=== PATIENT | female | born 1980 | race Two or more races ===

== ENCOUNTER 2019-05-19 12:09 | Emergency (ER) | payer SELFPAY ==
[~2019-05-19] VITALS: Ht 157.5 cm; Wt 86.0 kg
--- NOTE | 2019-05-19 12:26 | PHYS DOC ---
Adult General Chief Complaint Chief Complaint: Palpitations HPI HPI Patient is a 39 year old female with history of SVT and hypertension who presents via EMS with complaining of SVT. Patient complaining of non-exertional sudden onset of palpitation associated with mild dizziness without chest pain or shortness of breath or nausea vomiting that started at 1030 and patient with several migraine without improvement of the condition. EMS reported that patient had SVT with heart rate of 200 and treated with 6 and 12 and 12 mg of adenosine and finally heart rate dropped to 120s. Patient had elevation of blood pressure at 170s during treatment and episode of SVT. Patient stated last episode of SVT was 1 year ago and denies recent dehydration or missing her medication. Review of Systems Review of Systems Constitutional: Denies fever or chills [] Eyes: Denies change in visual acuity, redness, or eye pain [] HENT: Denies nasal congestion or sore throat [] Respiratory: Denies cough or shortness of breath [] Cardiovascular: No additional information not addressed in HPI [] GI: Denies abdominal pain, nausea, vomiting, bloody stools or diarrhea [] : Denies dysuria or hematuria [] Musculoskeletal: Denies back pain or joint pain [] Integument: Denies rash or skin lesions [] Neurologic: Denies headache, focal weakness or sensory changes [] Endocrine: Denies polyuria or polydipsia [] All other systems were reviewed and found to be within normal limits, except as documented in this note. Current Medications Current Medications Current Medications Medications (Trade) Dose Ordered Sig/Lilliana Start Time Stop Time Status Last Admin Dose Admin Metoprolol Tartrate (Lopressor) 25 mg 1X ONCE 05/19/19 14:30 05/19/19 14:31 DC 05/19/19 14:43 25 MG Sodium Chloride 1,000 ml @ 1,000 mls/hr 1X ONCE 05/19/19 14:30 05/19/19 15:29 05/19/19 14:44 1,000 MLS/HR Allergies Allergies Allergies Coded Allergies Type Severity Reaction Last Updated Verified No Known Drug Allergies 05/19/19 No Physical Exam Physical Exam Constitutional: Well developed, well nourished, mild distress, non-toxic appearance. [] HENT: Normocephalic, atraumatic. Eyes: PERRLA, EOMI, conjunctiva normal, no discharge. [] Neck: Normal range of motion, no tenderness, supple, no stridor. [] Cardiovascular: Tachycardia, no murmur [] Lungs & Thorax: Bilateral breath sounds clear to auscultation [] Abdomen: Bowel sounds normal, soft, no tenderness, no masses, no pulsatile masses. [] Skin: Warm, dry, no erythema, no rash. [] Back: No tenderness, no CVA tenderness. [] Extremities: No tenderness, no cyanosis, no clubbing, ROM intact, no edema. [] Neurologic: Alert and oriented X 3, no focal deficits noted. [] Psychologic: Affect normal, judgement normal, mood normal. [] Current Patient Data Vital Signs Vital Signs Date Time Temp Pulse Resp B/P (MAP) Pulse Ox O2 Delivery O2 Flow Rate FiO2 05/19/19 14:43 96 180/90 05/19/19 13:10 18 93 Room Air 05/19/19 12:18 99.0 99.0 Lab Values Laboratory Tests Test 05/19/19 12:28 Sodium Level 142 mmol/L (136-145) Potassium Level 3.7 mmol/L (3.5-5.1) Chloride Level 105 mmol/L (98-107) Carbon Dioxide Level 25 mmol/L (21-32) Anion Gap 12 (6-14) Blood Urea Nitrogen 10 mg/dL (7-20) Creatinine 0.8 mg/dL (0.6-1.0) Estimated GFR (Cockcroft-Gault) 80.3 BUN/Creatinine Ratio 13 (6-20) Glucose Level 104 mg/dL (70-99) H Calcium Level 9.2 mg/dL (8.5-10.1) Magnesium Level 2.1 mg/dL (1.8-2.4) Total Bilirubin 0.3 mg/dL (0.2-1.0) Aspartate Amino Transferase (AST) 23 U/L (15-37) Alanine Aminotransferase (ALT) 33 U/L (14-59) Alkaline Phosphatase 66 U/L (46-116) Creatine Kinase 104 U/L (26-192) Troponin I Quantitative < 0.017 ng/mL (0.000-0.055) CO-Vhc-K-Type Natriuretic Peptide 78 pg/mL (0-124) Total Protein 9.1 g/dL (6.4-8.2) H Albumin 4.3 g/dL (3.4-5.0) Albumin/Globulin Ratio 0.9 (1.0-1.7) L Thyroid Stimulating Hormone (TSH) 0.922 uIU/mL (0.358-3.74) Laboratory Tests 05/19/19 12:28 EKG EKG EKG interpreted by me. EKG at 1217 showed sinus tachycardia at rate of 124, left ventricular strain, poor R wave progression anteroseptal leads, no acute ST and T wave elevation. Radiology/Procedures Radiology/Procedures [facility] [address] [place] [address] IMAGING REPORT Signed PATIENT: BELINDA CLAUDIO ACCOUNT: [id number] : 1980 LOCATION: ER AGE: 39 SEX: F EXAM STATUS: REG ER ORD. PHYSICIAN: JONO BRIGGS MD REASON: SVT PROCEDURE: PORTABLE CHEST 1V PORTABLE CHEST 1V History: SVT. Comparison: None FINDINGS: No evidence of consolidating infiltrate. No pleural effusion or pneumothorax. Cardiomediastinal silhouette appears within normal limits. Bones appear intact. IMPRESSION: No evidence of consolidating infiltrate. Electronically signed by: Dallas Petersen MD (05/19/2019 2:39 PM) [id number] DICTATED and SIGNED BY: DALLAS PETERSEN MD DATE: 05/19/19 1439 Course & Med Decision Making Course & Med Decision Making Pertinent Labs and Imaging studies reviewed. (See chart for details) Evaluation of patient ER showed 39-year-old female patient brought in by EMS because of SVT that resolved by EMS with 6 and 12 and 12 mg of adenosine. Patient has sinus tachycardia at arrival to ER without hypotension or any other symptoms. Labs was unremarkable. Patient became tachycardic with sitting up and treated with 1 dose of metoprolol and IV fluids with improvement of her condition. Cardiology team was consulted at 1329 and suggested to increase metoprolol from 25 to 50 mg and follow-up as outpatient with manager photography. I've spoken with the patient and/or caregivers. I've explained the patient's condition, diagnosis and treatment plan based on information available to me at this time. I've answered the patient's and/or caregivers questions and addressed any concerns. The patient and/or caregivers have a good understanding the patient's diagnosis, condition and treatment plan as can be expected at this point. Vital signs have been stabilized. The patient's condition is stable for discharge from the emergency department. The patient will pursue further outpatient evaluation with her primary care provider or other designated consulting physician as outlined in the discharge instructions. Patient and/or caregivers are agreeable to this plan of care and follow-up instructions have been explained in detail. The patient and/or caregivers have received these instructions in written format and expressed und erstanding of these discharge instructions. The patient and her caregivers are aware that if any significant change in condition or worsening of symptoms should prompt him to immediately return to this of the closest emergency department. If an emergent department is not readily available I would e ncourage him to call 911. Dragon Disclaimer Dragon Disclaimer This electronic medical record was generated, in whole or in part, using a voice recognition dictation system. Departure Departure Impression: Primary Impression: SVT (supraventricular tachycardia) Additional Impression: Sinus tachycardia Disposition: 01 HOME, SELF-CARE Condition: IMPROVED Referrals: MEAGAN BARRAGAN MD Patient Instructions: Supraventricular Tachycardia, [id number] Additional Instructions: Take metoprolol 2 pills in the morning or take the prescribed medication once a day Follow-up with your primary care physician in 3-5 days Return to ER if not getting better Follow-up with your doctor in 2-3 days Scripts Metoprolol Succinate (Toprol XL) 50 Mg Tab.er.24h 50 MG PO DAILY for FOR HYPERTENSION, #30 TAB.SR Prov: JONO BRIGGS MD 05/19/19 Problem Qualifiers JONO BRIGGS MD May 19, 2019 12:26
[2019-05-19] MEDS ORDERED: METO-239 PO (12:39)
--- NOTE | 2019-05-19 12:40 | EKG ---
[facility] [address] [place] [address] Test Date: 2019-05-19 Test Time: 12:17:12 Pat Name: BELINDA POLK Department: Room: Gender: F [employer]er: : 1980 Requested By: JONO BRIGGS Order Number: [id number] Reading MD: Constantin Ching MD Measurements Intervals [place] Rate: 123 P: 31 IA: 120 QRS: 4 QRSD: 80 T: -6 QT: 354 QTc: 513 Interpretive Statements SINUS TACHYCARDIA NON-SPECIFIC ST/T CHANGES Electronically Signed On 05-19-2019 15:34:30 COMPUTER VIDEO GAME DESIGNER by Constantin Ching MD
[2019-05-19 12:58] LABS: CALCIUM 9.2 mg/dL (8.5-10.1); CREATININE 0.8 mg/dL (0.6-1.0); GFR 80.3; POTASSIUM 3.7 mmol/L (3.5-5.1)
[2019-05-19 13:03] LABS: ALBUMIN 4.3 g/dL (3.4-5.0); ALBUMIN/GLOBULIN RATIO 0.9 (1.0-1.7); MAGNESIUM 2.1 mg/dL (1.8-2.4); TOTAL BILIRUBIN 0.3 mg/dL (0.2-1.0); TOTAL PROTEIN 9.1 g/dL (6.4-8.2)
--- NOTE | 2019-05-19 13:58 | PDOC2 ---
HECTOR ROSADO ACID PUMPER 05/19/19 1358: CARDIAC CONSULT DATE OF CONSULT Date of Consult DATE: 05/19/19 TIME: 13:56 REASON FOR CONSULT Reason for Consult: Palpitations REFERRING PHYSICIAN Referring Physician: Vandana SOURCE Source: Chart review, Patient HISTORY OF PRESENT ILLNESS HISTORY OF PRESENT ILLNESS This is a pleasant 39 yo female admitted for complains of palpitations. Reports that she was sitting when she started feeling that her heart was racing. No SOA, chest pain or dizziness. She has a device that she uses for her HR and noted her HR in the 200s. She tried to bear down and actually dip her face in cold water but her rate did not slow down. EMS was finally called in and multiple adenosine were given. She finally converted to sinus tach. She does take torpol 25 once a day which she took this AM. Denies any tobacco use or excessive caffeine use. No recreational drugs. No recent falls or injury. Denies any decongestant use. She has hx of SVT with las episode about a yr ago. She [facility] [place] and [place]. No recent respiratory infection. She did drank about 5 bottles of beers last night to celebrate her birthday. No recent long distance travel. No hx of VTE. No exertional CP nor [place]. No n/v/d. PAST MEDICAL HISTORY Cardiovascular: Other (SVT; preeclampsia) Pulmonary: Asthma CENTRAL NERVOUS SYSTEM: Other (No pertinent history) GI: No pertinent hx Heme/Onc: No pertinent hx Hepatobiliary: No pertinent hx Psych: No pertinent hx Musculoskeletal: Other (None) Rheumatologic: No pertinent hx Infectious disease: No pertinent hx ENT: No pertinent hx Renal/: No pertinent hx Endocrine: No pertinent hx Dermatology: No pertinent hx PAST SURGICAL HISTORY Past Surgical History: No pertinent history FAMILY HISTORY Family History: Other (SVT sister also has it) SOCIAL HISTORY Smoke: No ALCOHOL: none Drugs: None Lives: with Family ALLERGIES ALLERGIES: Coded Allergies: No Known Drug Allergies (Unverified , 05/19/19) ROS Review of System 14 point ROS evaluated with pertinent positives noted per HPI PHYSICAL EXAM General: Alert, Oriented X3, Cooperative, No acute distress HEENT: Atraumatic, Mucous membr. moist/pink Lungs: Clear to auscultation, Normal air movement Heart: Regular rate (sinus tachycardia) Abdomen: Soft, No tenderness Extremities: No cyanosis, No edema Skin: No breakdown, No significant lesion Neuro: Normal speech, Sensation intact Psych/Mental Status: Mental status NL, Mood NL MUSCULOSKELETAL: Full range of motion without pain VITALS/I&O VITALS/I&O: Vital Signs Date Time Temp Pulse Resp B/P (MAP) Pulse Ox O2 Delivery O2 Flow Rate FiO2 05/19/19 13:10 105 18 174/94 (120) 93 Room Air 05/19/19 12:18 99.0 99.0 LABS Lab: Laboratory Tests Test 05/19/19 12:28 Sodium Level 142 mmol/L (136-145) Potassium Level 3.7 mmol/L (3.5-5.1) Chloride Level 105 mmol/L (98-107) Carbon Dioxide Level 25 mmol/L (21-32) Anion Gap 12 (6-14) Blood Urea Nitrogen 10 mg/dL (7-20) Creatinine 0.8 mg/dL (0.6-1.0) Estimated GFR (Cockcroft-Gault) 80.3 BUN/Creatinine Ratio 13 (6-20) Glucose Level 104 mg/dL (70-99) H Calcium Level 9.2 mg/dL (8.5-10.1) Magnesium Level 2.1 mg/dL (1.8-2.4) Total Bilirubin 0.3 mg/dL (0.2-1.0) Aspartate Amino Transferase (AST) 23 U/L (15-37) Alanine Aminotransferase (ALT) 33 U/L (14-59) Alkaline Phosphatase 66 U/L (46-116) Creatine Kinase 104 U/L (26-192) Troponin I Quantitative < 0.017 ng/mL (0.000-0.055) JJ-Clq-R-Type Natriuretic Peptide 78 pg/mL (0-124) Total Protein 9.1 g/dL (6.4-8.2) H Albumin 4.3 g/dL (3.4-5.0) Albumin/Globulin Ratio 0.9 (1.0-1.7) L Thyroid Stimulating Hormone (TSH) 0.922 uIU/mL (0.358-3.74) Laboratory Tests 05/19/19 12:28 ASSESSMENT/PLAN ASSESSMENT/PLAN 1. 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 presently sinus tach 2. HTN urgency 3. Obesity 4. Family hx of SVT. sister also has it 5. Prolonged QTc: 513 Recommendations 1. Increase toprol dose to 50 mg daily. Continue home lisinopril. Encouraged vagal maneuvers. 2. Follow up with her [place] cardioloigist. Consider outpt TTE if none done recently. 3. Discussed avoidance of caffeine and stimulants KRISTIN PACHECO MD 05/19/19 1535: CARDIAC CONSULT ASSESSMENT/PLAN ASSESSMENT/PLAN Pt. seen and examined. Agree with above REORDERING CLERK note. Ekg/labs wnl. 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 f/u with primary learning and development analyst. Ok to DC home. Thanks. HECTOR ROSADO APRN May 19, 2019 13:58 KRISTIN PACHECO MD May 19, 2019 15:35
[2019-05-19] MEDS ORDERED: IV NORMAL SALINE 1000ML BAG 1,000 ML IV ONE (14:30)
[2019-05-19] MEDS ORDERED: METOPROLOL TART IMMED RELEASE 25 MG TABLET. PO ONE (14:30)
--- NOTE | 2019-05-19 14:42 | RAD ---
PORTABLE CHEST 1V History: SVT. Comparison: None FINDINGS: No evidence of consolidating infiltrate. No pleural effusion or pneumothorax. Cardiomediastinal silhouette appears within normal limits. Bones appear intact. IMPRESSION: No evidence of consolidating infiltrate. Electronically signed by: Dallas Petersen MD (05/19/2019 2:39 PM) [id number]
[2019-05-19] MEDS ORDERED: METO50TA4 PO (15:16)
[2019-05-19 15:43] VITALS: BP 156/75
== END 2019-05-19 16:00 | disposition home or self-care (01) ==
LOC: ER 12:09
DX: I47.1 Supraventricular tachycardia (principal); R42 Dizziness and giddiness; I10 Essential (primary) hypertension
CPT/HCPCS: 36415; 71045; 80053; 82550; 83735; 83880; 84443; 84484; 93005; 96360; 99285; J7030